=== PATIENT | female | born 1975 | race Caucasian/White ===

== ENCOUNTER 2017-09-01 08:26 | Emergency (ER) | payer OTHER ==
[~2017-09-01] VITALS: Ht 170.2 cm; Wt 76.2 kg
--- NOTE | 2017-09-03 06:36 | EKG ---
[facility] [address] [facility] [place], [place] [address] Signed Normal sinus rhythm Normal ECG No previous ECGs available Confirmed by EDMUNDO WOO MD ([id number]) on 09/03/2017 6:35:41 AM Electronically Signed By: EDMUNDO WOO MD 09/03/17 0636 PATIENT NAME: LETITIA LOMBARDO Electrocardiogram DATE OF : 75 PHYSICIAN: EDMUNDO WOO MD REPORT #: [id number] REPORT IS CONFIDENTIAL AND NOT TO BE RELEASED WITHOUT AUTHORIZATION
== END 2017-09-01 09:48 | disposition home or self-care (01) ==
LOC: ED 08:26
DX: R07.9 Chest pain, unspecified (principal)
CPT/HCPCS: 80053; 84484; 85025; 93005; 93010; 99283

== ENCOUNTER 2023-12-04 17:21 | Emergency (ER) | payer OTHER ==
[~2023-12-04] VITALS: Ht 162.6 cm; Wt 69.8 kg
[~2023-12-04 17:21] MED LIST: VENLAFAXINE H37.5 M1 PO
[2023-12-04] MEDS ORDERED: NORGESTIMATE-E1 EACH PO (17:35)
[2023-12-04 18:11] VITALS: BP 149/84
--- NOTE | 2023-12-05 22:50 | EKG ---
[facility] [address] [facility] [place] [address] Signed Normal sinus rhythm Normal ECG When compared with ECG of 06-AUG-2023 09:43, No significant change was found Confirmed by Reba Pinzon MD () on 12/05/2023 10:50:19 PM Electronically Signed By: REBA PINZON MD 12/05/23 2250 PATIENT NAME: LETITIA LOMBARDO Electrocardiogram DATE OF : 75 PHYSICIAN: REBA PINZON MD REPORT #: [id number] REPORT IS CONFIDENTIAL AND NOT TO BE RELEASED WITHOUT AUTHORIZATION
== END 2023-12-04 18:11 | disposition home or self-care (01) ==
LOC: ED 17:21
DX: F41.0 Panic disorder [episodic paroxysmal anxiety] (principal); Z79.899 Other long term (current) drug therapy
CPT/HCPCS: 93005; 93010; 99284